=== PATIENT | male | born 1990 | race Caucasian/White ===

== ENCOUNTER 2023-02-08 20:23 | Emergency (ER) | payer MEDICAID, OTHER ==
[~2023-02-08] VITALS: Ht 172.7 cm; Wt 84.1 kg
[2023-02-09] MEDS ORDERED: KETOROLAC TROMETH 30 MG/ML 1ML VIAL IM ONE (01:00)
[2023-02-09 01:55] VITALS: BP 101/65; PULSE 84; RESP 18; TEMP 97.7; O2SAT 98
== END 2023-02-09 01:55 | disposition home or self-care (01) ==
LOC: ER 20:23 → EDBD 20:23 → ER 02-09 01:55
DX: S93.601A Unspecified sprain of right foot, initial encounter (principal); M25.571 Pain in right ankle and joints of right foot; X50.1XXA Overexertion from prolonged static or awkward postures, initial encounter; Y93.89 Activity, other specified; Y92.89 Other specified places as the place of occurrence of the external cause; Y99.8 Other external cause status
CPT/HCPCS: 73600; 73630; 96372; 99284; J1885